=== PATIENT | male | born 1965 | race Caucasian/White ===

== ENCOUNTER → 2020-08-13 | Outpatient (CLI) | payer BC ==
[~2020-08-13] MED LIST: ASPIRIN CHEWABL81 MG PO; FOLIC ACID 1 MG1 MG PO; LOPRESSOR 25 MG25 MG PO; NITROSTAT0.4 MG SL; PROTONIX40 MG PO; RANEXA500 MG PO; VITAMIN B-1100 MG PO; ZETIA 10 MG TAB10 MG PO
== END ==
LOC: KOH-I 12:46
DX: S39.012A Strain of muscle, fascia and tendon of lower back, initial encounter (principal); M51.36 Other intervertebral disc degeneration, lumbar region
CPT/HCPCS: 72100

== ENCOUNTER → 2020-09-01 | Outpatient (CLI) | payer BC | LOC: KOH-I 14:50 | DX: M51.16 Intervertebral disc disorders with radiculopathy, lumbar region (principal); M51.27 Other intervertebral disc displacement, lumbosacral region; M48.07 Spinal stenosis, lumbosacral region; M48.061 Spinal stenosis, lumbar region without neurogenic claudication | CPT/HCPCS: 72148 ==